=== PATIENT | female | born 1990 | race Caucasian/White ===

== ENCOUNTER 2020-07-01 15:34 | Outpatient (CLI) | payer OTHER | END 2020-07-01 15:35 | disposition home or self-care (01) | LOC: PPH VACUNA 15:34 | DX: Z23 Encounter for immunization (principal) ==

== ENCOUNTER 2021-04-03 13:24 | Outpatient (CLI) | payer OTHER | END 2021-04-03 13:28 | disposition home or self-care (01) | LOC: PPH VACUNA 13:24 | PROVIDERS: ATTEND Emergency Medicine Pediatric Emergency Medicine | DX: Z23 Encounter for immunization (principal) ==

== ENCOUNTER 2021-07-21 11:09 | Emergency (ER) | payer OTHER ==
[~2021-07-21] VITALS: Ht 182.9 cm; Wt 131.5 kg
[2021-07-21] MEDS ORDERED: ORPHENADRINE C100 MG PO (13:17)
[2021-07-21] MEDS ORDERED: DICLOFENAC POTA50 MG PO (13:17)
== END 2021-07-21 13:33 | disposition home or self-care (01) ==
LOC: ER 11:09
DX: S83.8X2A Sprain of other specified parts of left knee, initial encounter (principal); X50.0XXA Overexertion from strenuous movement or load, initial encounter; Y93.39 Activity, other involving climbing, rappelling and jumping off; Y92.89 Other specified places as the place of occurrence of the external cause; Y99.8 Other external cause status

== ENCOUNTER 2022-02-24 09:53 | Emergency (ER) | payer OTHER ==
[~2022-02-24] VITALS: Ht 182.9 cm; Wt 102.1 kg
[~2022-02-24 09:53] MED LIST: DICLOFENAC POTA50 MG PO; ORPHENADRINE C100 MG PO
[2022-02-24] MEDS ORDERED: IBU800 MG PO (11:47)
== END 2022-02-24 11:55 | disposition home or self-care (01) ==
LOC: ER 09:53
DX: M25.562 Pain in left knee (principal); I10 Essential (primary) hypertension; M25.462 Effusion, left knee

== ENCOUNTER 2022-03-19 13:11 | Outpatient (CLI) | payer OTHER ==
[~2022-03-19 13:11] MED LIST changes: +IBU800 MG PO
== END 2022-03-19 13:19 | disposition home or self-care (01) ==
LOC: MRI 13:11
DX: S80.812A Abrasion, left lower leg, initial encounter (principal)
CPT/HCPCS: 73721